=== PATIENT | female | born 2000 | race African-American/Black ===

== ENCOUNTER 2021-12-04 06:37 | Day surgery (SDC) | payer BC ==
[~2021-12-04] VITALS: Ht 157.5 cm; Wt 62.0 kg
[2021-12-04] VITALS (11 sets, daily range): BP systolic 82–115; BP diastolic 47–77
[~2021-12-04 06:37] MED LIST: AC325T PO; ALBU8.5H2 IH; AMOX250S6 PO; CEFU250T11 PO; CETI10TA17 PO; DEXA6TAB PO; FAMO20TA73 PO; HYDR473S50 PO; IBUP200C92 PO; NAPR220C11 PO; ONDN4T PO; TETRACAINE LOLIPOP PO
[2021-12-04] MEDS ORDERED: ceFAZolin INJECTION 1,000 MG in NS (IVPB) 50 ML IV ONE (07:00)
--- NOTE | 2021-12-04 07:09 | Progress Note-Pre Operative ---
Pre-Operative Progress Note Date of Available H&P: Dec 04, 2021 Date H&P Reviewed: Dec 04, 2021 Time H&P Reviewed: 07:08 History & Physical: H&P Reviewed, No changes noted Pre-Operative Diagnosis: Blighted ovum/missed miscarriage LYNDSEY TOMLINSON MD Dec 04, 2021 07:09
--- NOTE | 2021-12-04 07:09 | Progress Note-Post Operative ---
Post-Operative Progess Note Surgeon (s)/Automobile Repair Service Estimator (s) Surgeon LYNDSEY TOMLINSON MD Automobile Repair Service Estimator: None Pre-Operative Diagnosis Blighted ovum/missed miscarriage Post-Operative Diagnosis Same with pathology pending Procedure & Operative Findings Date of Procedure 12/04/21 Procedure Performed/Findings D&C for first trimester missed AB Anesthesia Type General Estimated Blood Loss Estimated blood loss (mL): 200cc Specimens/Packing Specimens Removed Uterine contents/products of conception LYNDSEY TOMLINSON MD Dec 04, 2021 07:09
--- NOTE | 2021-12-04 07:12 | Discharge Inst-Surgical ---
Discharge Inst-Surgical Depart Medication/Instructions New, Converted or Re-Newed RX: Other Consults/Follow Up Patient Instructions: As directed Orders & Referrals Follow Up Appt: Call to make follow up appt. for patient in 2 weeks. Activity: as tolerated. Diet: As tolerated shower or tub bathe as desired. No driving for 24 hours, no alcoholic beverages for 24 hours, and nothing per vagina (no tampons, douching, or intercoarse) for 2 weeks. Patient to return to the clinic as soon as possible for: Temperature greater than 101F, Severe Pain, Foul discharge from incision or vagina, Excessive Bleeding (more than a period). Activity Activity as Tolerated: No Diet Discharge Diet: No Restrictions LYNDSEY TOMLINSON MD Dec 04, 2021 07:12
[2021-12-04] MEDS ORDERED: oxyCODONE/APAP 5/325MG (PERCOCET 5) TABLET PO PRN (07:15)
[2021-12-04] MEDS ORDERED: KETOROLAC 30 MG/ML VIAL IVP ONE (07:15)
[2021-12-04] MEDS ORDERED: D5 LR IV SOLUTION 1,000 ML IV SCH (07:15)
[2021-12-04] MEDS ORDERED: ONDANSETRON 4 MG/2 ML (SDV) Z0FRAN IVP PRN ×2 (07:15→08:30)
[2021-12-04] MEDS ORDERED: fentaNYL INJ 100 MCG/2 ML AMP IVP PRN (07:15)
[2021-12-04 07:20] LABS: BASOPHILS # (AUTO) 0.1 10^3/uL (0.0-0.1); BASOPHILS % (AUTO) 1 % (0-10); EOSINOPHILS # (AUTO) 0.2 10^3/uL (0.0-0.3); EOSINOPHILS % (AUTO) 2 % (0-10); HEMATOCRIT 38 % (35-52); HEMOGLOBIN 12.7 g/dL (11.5-16.0); LYMPHOCYTES # (AUTO) 2.1 10^3/uL (1.0-4.0); LYMPHOCYTES % (AUTO) 26 % (12-44); MEAN CORPUSCULAR HEMOGLOBIN 30 pg (25-34); MEAN CORPUSCULAR HGB CONC 34 g/dL (32-36); MEAN CORPUSCULAR VOLUME 88 fL (80-99); MEAN PLATELET VOLUME 9.7 fL (9.0-12.2); MONOCYTES # (AUTO) 0.5 10^3/uL (0.0-1.0); MONOCYTES % (AUTO) 7 % (0-12); NEUTROPHILS # (AUTO) 5.2 10^3/uL (1.8-7.8); NEUTROPHILS % (AUTO) 64 % (42-75); PLATELET COUNT 321 10^3/uL (130-400); WHITE BLOOD COUNT 8.1 10^3/uL (4.3-11.0)
[2021-12-04] MEDS ORDERED: LACTATED RINGERS 1,000 ML IV ONE (07:30)
[2021-12-04] MEDS ORDERED: NS IV 1000 ML 1,000 ML IV ONE (07:30)
[2021-12-04] MEDS ORDERED: fentaNYL INJ 100 MCG/2 ML AMP ONE (07:53)
[2021-12-04] MEDS ORDERED: LIDOCAINE PF 2% 5 ML (XYLOCAINE) VIAL ONE (07:53)
[2021-12-04] MEDS ORDERED: MIDAZOLAM 2 MG/2 ML (VERSED) VIAL ONE (07:53)
[2021-12-04] MEDS ORDERED: ONDANSETRON 4 MG/2 ML (SDV) Z0FRAN ONE (07:53)
[2021-12-04] MEDS ORDERED: proPOfol 200 MG/20 ML (DIPRIVAN) VIAL IV ONE ×2 (07:53→08:11)
[2021-12-04] MEDS ORDERED: SEVOFLURANE (ULTANE) 15 ML INHAL SOLN ONE (08:26)
[2021-12-04] MEDS ORDERED: morphine INJ 10 MG/ML 1ML (SYR OR VIAL) IVP ONE (08:30)
--- NOTE | 2021-12-04 13:05 | Anesthesia-General Post-Op ---
General Patient Condition Mental Status/LOC: Same as Preop Cardiovascular: Satisfactory Nausea/Vomiting: Absent Respiratory: Satisfactory Pain: Controlled Complications: Absent Post Op Complications Complications None Follow Up Care/Instructions Patient Instructions None needed. Anesthesia/Patient Condition Patient Condition Patient was doing well this morning after the procedure with no complaints, stable vital signs, no apparent adverse anesthesia problems. No complications reported per nursing. RUSH GOMEZ DO Dec 04, 2021 13:05
--- NOTE | 2021-12-04 13:59 | OPERATIVE REPORT ---
DATE OF SERVICE: 12/04/2021 PREOPERATIVE DIAGNOSIS: Missed /blighted ovum. PREOPERATIVE DIAGNOSIS: Missed /blighted ovum. OPERATIVE PROCEDURE: D and C for missed AB in the first trimester. OPERATIVE DESCRIPTION: With the patient in the supine position under satisfactory general anesthesia, she was repositioned in dorsal lithotomy position in the Manuel stirrups and prepped and draped in the usual fashion for vaginal surgery. The patient had voided before coming to the OR. Weighted speculum placed in posterior fornix of vagina, cervix exposed and grasped anteriorly with single tooth tenaculum. Uterus sounded to 14 cm with uterine sound. The cervix was then serially dilated with Milan dilators to a #20 Milan and then a #9 and 10 Hegar dilator was the final step in dilation. A #10 curved suction curette was introduced, uterine cavity curettaged in all 4 quadrants to good uterine cry with removal of a large amount of trophoblastic and decidual appearing tissue, blood clot, amniotic fluid and debris. The endometrial cavity was then sharply curettaged in all 4 quadrants with a sharp curette again to a good uterine cry. The curved suction curette was reintroduced, and all blood clot and debris evacuated from the uterus. The tenaculum was removed. There was some bleeding from the puncture sites. This was touched with silver nitrate to effect hemostasis. There was minimal bleeding at the cervical os. The uterus had been 10 to 12-week size at the initiation of the procedure now was about 8 to 10-week size and nicely contracted. With bleeding minimal, sponge and needle counts correct, the procedure was terminated. Blood loss was around 200 mL. The patient tolerated the procedure well and was uneventfully awakened from her general anesthesia and transferred to recovery room in stable condition with plans for discharge home PAR. Job ID: [id number] DocumentID: [id number] Dictated Date: 12/04/2021 08:18:53 Manager Code Date: 12/04/2021 13:59:07 Dictated By: LYNDSEY TOMLINSON MD
== END 2021-12-04 10:40 | disposition home or self-care (01) ==
LOC: SDC 06:37
PROVIDERS: ATTEND Obstetrics & Gynecology
DX: O02.1 Missed abortion (principal); F17.290 Nicotine dependence, other tobacco product, uncomplicated
CPT/HCPCS: 36415; 85025; 87081

== ENCOUNTER 2021-12-07 12:32 | Emergency (ER) | payer BC ==
[~2021-12-07] VITALS: Ht 157 cm; Wt 62.4 kg
[2021-12-07 12:45] VITALS: BP 131/94
--- NOTE | 2021-12-07 12:53 | ED Abdominal Pain ---
General Chief Complaint: Abdominal/GI Problems Stated Complaint: CRAMPING/VAG BLEEDING Nursing Triage Note: PT STATES SHE HAD A D&C WITH [facility] ON THU. WAS TOLD IF SHE HAD CRAMPING OR VAGINAL BLEEDING TO COME TO THE ER. PT STATES IBUPROFEN IS NOT HELPING HER CRAMPING AND SHE USED X3 PADS LAST NIGHT. History of Present Illness Date Seen by Provider: Dec 07, 2021 Time Seen by Provider: 12:50 Initial Comments Patient presents to the emergency department for increasing vaginal bleeding and cramping yesterday while she was working at [email or web address]. States that she had a D&C on Thursday for failed . Was told that if she had increasing cramping or bleeding that she needed to come to the ER. Has been taking Ibuprofen at home with mild improvement of symptoms. Reports that she bleed through three pads last night. Timing/Duration: 1-2 Days Severity/Quality: Moderate, Cramping Location: Suprapubic Radiation: No Radiation Activities at Onset: Activity (working) Modifying Factors: Improves With Lying down; Worsens With Movement, Worsens With Palpation; Improves With Resting Associated Symptoms: No Back Pain, No Chest Pain, No Diaphoresis, No Fever/Chills, No Fatigue, No Headache, No Nausea/Vomiting, No Shortness of Air, No Swelling/Mass in Abdomen, No Syncope, No Weakness Allergies and Home Medications Allergies Coded Allergies: rizatriptan (Unverified Allergy, Unknown, 04/11/14) Patient Home Medication List Home Medication List Reviewed: Yes Hydrocodone Bit/Acetaminophen (HYDROcodone/APAP 5 MG/325 MG TAB) 1 Tab Tab, 1 TAB PO Q6H Prescribed by: Debbie Rinaldi on 12/07/21 1345 Discontinued Medications Acetaminophen (Tylenol Tablet) 325 Mg Tab, 325 MG PO Q4H PRN for SIMRAN, (Reported) Discontinued Reason: No Longer Taking Entered as Reported by: CARLOS FERRELL on 04/11/14 1132 Albuterol (Proair Hfa) 8.5 Gm Hfa.aer.ad, 1 PUFF IH RTQ4HR, (Reported) Discontinued Reason: No Longer Taking Entered as Reported by: CARLOS FERRELL on 04/11/14 1132 Last Action: Discontinued Amoxicillin Trihydrate (Amoxicillin) 250 Mg/5 Ml Susp.recon, 1 TSP PO BID Discontinued Reason: No Longer Taking Prescribed by: CASSIA KRISHNAN on 04/14/14 103 Cefuroxime Axetil (Cefuroxime Axetil) 250 Mg Tablet, 250 MG PO BID, (Reported) Discontinued Reason: No Longer Taking Entered as Reported by: CARLOS FERRELL on 04/11/14 113 Cetirizine Hcl (Cetirizine Hcl) 10 Mg Tablet, 10 MG PO DAILY, (Reported) Discontinued Reason: No Longer Taking Entered as Reported by: CARLOS FERRELL on 04/11/14 113 Last Action: Discontinued Dexamethasone (Dexamethasone) 6 Mg Tablet, 12 MG PO DAILY Discontinued Reason: No Longer Taking Prescribed by: CASSIA KRISHNAN on 04/14/14 103 Famotidine (Acid Control) 20 Mg Tablet, 20 MG PO DAILY, (Reported) Discontinued Reason: No Longer Taking Entered as Reported by: CARLOS FERRELL on 04/11/14 113 Hydrocodone/Acetaminophen (Lortab 10 mg-300 mg/15 ml Elxr) 473 Ml Solution, 1- 1.5 TSP PO Q4H PRN for PAIN Discontinued Reason: No Longer Taking Prescribed by: CASSIA KRISHNAN on 04/14/141034 Ibuprofen (Advil Liqui-Gels) 200 Mg Capsule, 200 MG PO Q8H PRN for PAIN, (Reported) Discontinued Reason: No Longer Taking Entered as Reported by: CARLOS FERRELL on 04/11/14 113 Naproxen Sodium (Aleve) 220 Mg Capsule, 220 MG PO PRN PRN for PAIN, (Reported) Discontinued Reason: No Longer Taking Entered as Reported by: CARLOS FERRELL on 04/11/14 113 Ondansetron Hcl (Zofran Po) 4 Mg Tab, 4 MG PO Q6H PRN for NAUSEA/VOMITING, (Reported) Discontinued Reason: No Longer Taking Entered as Reported by: CARLOS FERRELL on 04/11/14 113 [Tetracaine Lolipop] , 1 EACH PO UD Discontinued Reason: No Longer Taking Prescribed by: CASSIA KRISHNAN on 04/14/14 103 Review of Systems Review of Systems Constitutional: No dizziness, No fever, No weakness EENTM: No Symptoms Reported Respiratory: No Symptoms Reported Cardiovascular: No Symptoms Reported Gastrointestinal: Abdominal Pain (suprapubic); Denies Diarrhea, Denies Nausea, Denies Vomiting Genitourinary: Denies Burning, Denies Discharge, Denies Frequency, Denies Pain, Denies Urgency Musculoskeletal: No back pain, No muscle pain Skin: no symptoms reported All Other Systems Reviewed Negative Unless Noted: Yes Past Vljcadi-Nissvw-Ceabqm Hx Seasonal Allergies Seasonal Allergies: No Past Medical History Surgeries: No Respiratory: Yes (HX BRONCHIAL SPASM) Currently Using CPAP: No Currently Using BIPAP: No Cardiac: No Neurological: No Female Reproductive Disorders: Denies Sexually Transmitted Disease: No HIV/AIDS: No Genitourinary: No Gastrointestinal: Yes (CONSTIPATION) Musculoskeletal: No Endocrine: No HEENT: No Loss of Vision: Denies Hearing Impairment: Denies Cancer: No Psychosocial: No Integumentary: No Blood Disorders: No Physical Exam Vital Signs Vital Signs - First Documented 12/07/21 12:45 Temp 36.4 Pulse 98 Resp 16 B/P (MAP) 131/94 (106) Pulse Ox 100 O2 Delivery Room Air Capillary Refill : Less Than 3 Seconds Height/Weight/BMI Height: 4'9.00" Weight: 108lbs. oz. [id number]; 25.00 BMI Method: General Appearance: WD/WN, no apparent distress Respiratory: chest non-tender, lungs clear, normal breath sounds, no respiratory distress, no accessory muscle use Cardiovascular: regular rate, rhythm, no edema Gastrointestinal: normal bowel sounds, soft, tenderness (suprapubic) Extremities: normal range of motion, non-tender, normal inspection Neurologic/Psychiatric: alert, normal mood/affect, oriented x 3 Skin: normal color, warm/dry Progress/Results/Core Measures Results/Orders Lab Results Laboratory Tests Test 12/07/21 13:08 Range/Units White Blood Count 12.5 H 4.3-11.0 10^3/uL Red Blood Count 4.10 3.80-5.11 10^6/uL Hemoglobin 12.1 11.5-16.0 g/dL Hematocrit 36 35-52 % Mean Corpuscular Volume 88 80-99 fL Mean Corpuscular Hemoglobin 30 25-34 pg Mean Corpuscular Hemoglobin Concent 34 32-36 g/dL Red Cell Distribution Width 12.9 10.0-14.5 % Platelet Count 302 130-400 10^3/uL Mean Platelet Volume 9.9 9.0-12.2 fL Immature Granulocyte % (Auto) 1 % Neutrophils (%) (Auto) 82 H 42-75 % Lymphocytes (%) (Auto) 11 L 12-44 % Monocytes (%) (Auto) 6 0-12 % Eosinophils (%) (Auto) 0 0-10 % Basophils (%) (Auto) 1 0-10 % Neutrophils # (Auto) 10.2 H 1.8-7.8 10^3/uL Lymphocytes # (Auto) 1.4 1.0-4.0 10^3/uL Monocytes # (Auto) 0.7 0.0-1.0 10^3/uL Eosinophils # (Auto) 0.1 0.0-0.3 10^3/uL Basophils # (Auto) 0.1 0.0-0.1 10^3/uL Immature Granulocyte # (Auto) 0.1 0.0-0.1 10^3/uL Sodium Level 138 135-145 MMOL/L Potassium Level 3.5 L 3.6-5.0 MMOL/L Chloride Level 108 H 98-107 MMOL/L Carbon Dioxide Level 22 21-32 MMOL/L Anion Gap 8 5-14 MMOL/L Blood Urea Nitrogen 5 L 7-18 MG/DL Creatinine 0.74 0.60-1.30 MG/DL Estimat Glomerular Filtration Rate 119 BUN/Creatinine Ratio 7 Glucose Level 91 70-105 MG/DL Calcium Level 9.1 8.5-10.1 MG/DL Corrected Calcium 9.3 8.5-10.1 MG/DL Total Bilirubin 0.5 0.1-1.0 MG/DL Aspartate Amino Transf (AST/SGOT) 16 5-34 U/L Alanine Aminotransferase (ALT/SGPT) 15 0-55 U/L Alkaline Phosphatase 56 40-136 U/L Total Protein 6.8 6.4-8.2 GM/DL Albumin 3.7 3.2-4.5 GM/DL My Orders Orders - DEBBIE RINALDI APRN Cbc With Automated Diff (12/07/21 12:53) Comprehensive Metabolic Panel (12/07/21 12:53) Hydrocodone/Apap 5/325 Tablet (Lortab 5 (12/07/21 13:00) Medications Given in ED Current Medications Medications Dose Ordered Sig/Elena Route Start Time Stop Time Status Last Admin Dose Admin Acetaminophen/ Hydrocodone Bitart 1 ea ONCE ONCE PO 12/07/21 13:00 12/07/21 13:01 DC 12/07/21 13:09 1 EA Vital Signs/I&O 12/07/21 12:45 Temp 36.4 Pulse 98 Resp 16 B/P (MAP) 131/94 (106) Pulse Ox 100 O2 Delivery Room Air Blood Pressure Mean: 106 Progress Progress Note : Progress Note Patient had D&C on Thursday. Has been taking over the counter medications. Went back to work yesterday and had increasing vaginal bleeding and cramping. Came to the ER for further evaluation and treatment. Will check labs and monitor. 1337: Discussed labs with patient. Suspect that her increased bleeding and cramping and likely related to increased activity and going back to work. Will send out a few Hydrocodone to take for severe pain. Otherwise can take over the counter medications. Reasons to return to the ER were discussed with patient in addition. Departure Impression Primary Impression: Vaginal bleeding Disposition: HOME, SELF-CARE Condition: Stable Departure-Patient Inst. Decision time for Depature: 13:42 Referrals: CELSO FORD APRN (PCP/Family) Primary Care Physician Add. Discharge Instructions: 1. Home and rest. 2. Push fluids. 3. Alternate Tylenol/Ibuprofen as needed for pain. 4. Hydrocodone as needed for severe pain. This medication can cause constipation so consider taking a stool softner while on this medication. NO driving while taking this medication. 5. Follow up with PCP as needed. 6. Follow up with OB as needed. 7. Consider using heating pad to lower abdomen as needed. 8. Return here if worse or concerns. All discharge instructions reviewed with patient and/or family. Voiced understanding. Scripts Hydrocodone Bit/Acetaminophen (HYDROcodone/APAP 5 MG/325 MG TAB) 1 Tab Tab 1 TAB PO Q6H for Pain, #8 TAB 0 Refills Prov: DEBBIE RINALDI APRN 12/07/21 Work/School Note: Work Release Form Date Seen in the Emergency Department: Dec 07, 2021 Return to Work: Dec 12, 2021 Restrictions: No Restrictions DEBBIE RINALDI APRN Dec 07, 2021 12:53
[2021-12-07] MEDS ORDERED: HYDROcodone/APAP 5 MG/325 MG (LORTAB) TAB PO ONE (13:00)
[2021-12-07 13:15] LABS: BASOPHILS # (AUTO) 0.1 10^3/uL (0.0-0.1); BASOPHILS % (AUTO) 1 % (0-10); EOSINOPHILS # (AUTO) 0.1 10^3/uL (0.0-0.3); EOSINOPHILS % (AUTO) 0 % (0-10); HEMATOCRIT 36 % (35-52); HEMOGLOBIN 12.1 g/dL (11.5-16.0); LYMPHOCYTES # (AUTO) 1.4 10^3/uL (1.0-4.0); LYMPHOCYTES % (AUTO) 11 % (12-44); MEAN CORPUSCULAR HEMOGLOBIN 30 pg (25-34); MEAN CORPUSCULAR HGB CONC 34 g/dL (32-36); MEAN CORPUSCULAR VOLUME 88 fL (80-99); MEAN PLATELET VOLUME 9.9 fL (9.0-12.2); MONOCYTES # (AUTO) 0.7 10^3/uL (0.0-1.0); MONOCYTES % (AUTO) 6 % (0-12); NEUTROPHILS # (AUTO) 10.2 10^3/uL (1.8-7.8); NEUTROPHILS % (AUTO) 82 % (42-75); PLATELET COUNT 302 10^3/uL (130-400); WHITE BLOOD COUNT 12.5 10^3/uL (4.3-11.0)
[2021-12-07 13:25] LABS: ALBUMIN 3.7 GM/DL (3.2-4.5); POTASSIUM 3.5 MMOL/L (3.6-5.0)
[2021-12-07 13:27] LABS: CALCIUM 9.1 MG/DL (8.5-10.1)
[2021-12-07 13:28] LABS: TOTAL PROTEIN 6.8 GM/DL (6.4-8.2)
[2021-12-07 13:30] LABS: BILIRUBIN,TOTAL 0.5 MG/DL (0.1-1.0)
[2021-12-07 13:31] LABS: CREATININE SERUM 0.74 MG/DL (0.60-1.30)
[2021-12-07] MEDS ORDERED: ACHD5005 PO (13:45)
== END 2021-12-07 13:53 | disposition home or self-care (01) ==
LOC: EDUNIT# 12:32 → ER 12:34
DX: N93.9 Abnormal uterine and vaginal bleeding, unspecified (principal); Z98.890 Other specified postprocedural states
CPT/HCPCS: 36415; 80053; 85025; 99283

== ENCOUNTER → 2022-07-01 | Outpatient (CLI) | payer BC ==
[~2022-07-01] MED LIST changes: +ACHD5005 PO
== END ==
LOC: CARD 09:50
PROVIDERS: ATTEND Nurse Practitioner Family
DX: R07.89 Other chest pain (principal)
CPT/HCPCS: 93306

== ENCOUNTER → 2022-07-15 | Outpatient (CLI) | payer BC | LOC: CARD 13:57 | PROVIDERS: ATTEND Nurse Practitioner Family | DX: R07.9 Chest pain, unspecified (principal) ==